=== PATIENT | male | born 1980 | race Hispanic/Latino ===

== ENCOUNTER 2017-06-05 11:44 | Emergency (ER) | payer BC | END 2017-06-05 12:46 | disposition home or self-care (01) | LOC: ERS 11:44 | DX: B02.9 Zoster without complications (principal); Z71.6 Tobacco abuse counseling; F17.210 Nicotine dependence, cigarettes, uncomplicated | CPT/HCPCS: 99406 ==

== ENCOUNTER 2018-08-18 18:00 | Emergency (ER) | payer BC ==
[~2018-08-18 18:00] MED LIST: ISOVUE-370 76%-LOCM 1 ML ONE
[2018-08-18] MEDS ORDERED: Acetaminophen 325 MG TAB ONE (18:49)
[2018-08-18 19:00] LABS: #Eosinphils 0.8 thou/uL (0.0-0.7); #Lymphocytes 1.8 thou/uL (1.20-3.40); #Monocytes 0.8 thou/uL (0.11-0.59); #Neutrophils 2.8 thou/uL (1.40-6.50); %Basophils 0.7 % (0.0-1.0); %Lymphocytes 29.1 % (21.0-51.0); %Monocytes 13.4 % (0.0-10.0); %Neutrophils 44.7 % (42.0-75.0); Hemoglobin 13.2 g/dL (14.0-18.0); Mean Corpuscular HGB CONC 33.8 g/dL (32.0-36.0); Mean Corpuscular Hemoglobin 29.8 pg (27.0-31.0); Mean Corpuscular Volume 88.2 fL (78.0-98.0); Mean Platelet Volume 7.1 fL (7.4-10.4); Platelet Count 329 thou/uL (130-400); RBC Distribution Width 11.4 % (11.5-14.5); Red Blood Cell (RBC) Count 4.43 mill/uL (4.70-6.10); White Blood Cell (WBC) Count 6.3 thou/uL (4.8-10.8)
[2018-08-18 19:19] LABS: Bilirubin Small (Negative); Blood, Urine Negative (Negative); Clarity CLEAR (Clear); Glucose, Urine (Dipstick) Negative (Negative); Leukocyte Negative (Negative); Nitrite Negative (Negative); Protein, Urine (Dipstick) Negative (Neg-Trace); Specific Gravity, Urine 1.027 (1.002-1.036)
[2018-08-18 19:22] LABS: ALT (SGPT) 29 U/L (8-55); AST (SGOT) 14 U/L (5-34); Albumin 3.5 g/dL (3.5-5.0); Alkaline Phosphatase 119 U/L (40-150); Anion Gap 10 mmol/L (10-20); BUN (Urea Nitrogen) 9 mg/dL (8.9-20.6); Bilirubin, Total 0.2 mg/dL (0.2-1.2); Calc. Creatinine Clearance 0 mL/min (70-130); Calcium 8.8 mg/dL (7.8-10.44); Carbon Dioxide 30 mmol/L (22-29); Chloride 105 mmol/L (98-107); Estimated GFR-MDRD Greater than 90; Globulin 3.2 g/dL (2.4-3.5); Glucose 73 mg/dL (70-105); Lipase 66 U/L (8-78); Potassium 3.5 mmol/L (3.5-5.1); Protein, Total 6.7 g/dL (6.0-8.3); Sodium 141 mmol/L (136-145)
--- NOTE | 2018-08-18 20:04 | CT ---
NONCONTRAST CT OF THE ABDOMEN AND PELVIS: History: Left lower quadrant pain. FINDINGS: The lung bases are unremarkable. No evidence of free intraperitoneal air is seen. The liver, spleen, and pancreas are unremarkable. The stomach is distended with a large amount of ing ested food. The gallbladder is contracted. The adrenal glands and kidneys are unremarkable. No dilate d loops of small bowel is seen. The colon is unremarkable. Left inguinal lymph nodes are present, fina meter measuring 1.3 cm. No evidence of hernia seen in the inguinal canal. Moderately enlarged mesenteric lymph nodes are also present. IMPRESSION: Enlarged left inguinal lymph nodes. Correlate with possible infectious etiologies. Malignancy, howeve r, cannot be excluded. Correlate with clinical exam and follow up clinical evaluation. POS: MALENA
[2018-08-18] MEDS ORDERED: cefTRIAXone\\ROCEPHIN 250 MG VIAL ONE (21:28)
[2018-08-18] MEDS ORDERED: Lidocaine 1% PF 5 ML VIAL ONE (21:28)
[2018-08-21 00:46] LABS: Chlamydia by PCR Not Detected (NotDetected); GC by PCR Not Detected (NotDetected)
== END 2018-08-18 22:00 | disposition home or self-care (01) ==
LOC: ERS 18:00
DX: R59.0 Localized enlarged lymph nodes (principal); F17.210 Nicotine dependence, cigarettes, uncomplicated
CPT/HCPCS: 36415; 74177; 80053; 81003; 83690; 85025; 87086; 87491; 87591; 96372; J0696; J2001; Q9966

== ENCOUNTER 2023-11-22 03:39 | Emergency (ER) | payer BC, SELFPAY ==
[2023-11-22 04:09] LABS: #Basophils 0.05 10x3/uL (0.0-0.2); %Basophils 0.7 % (0.0-1.0); %Eosinophils 11.2 % (0.0-10.0); %Lymphocytes 26.5 % (21.0-51.0); %Monocytes 10.8 % (0.0-10.0); %Neutrophils 50.4 % (42.0-75.0); Hematocrit 46.7 % (42.0-52.0); Mean Corpuscular HGB CONC 34.3 g/dL (32.0-36.0); Mean Corpuscular Hemoglobin 29.9 pg (27.0-31.0); Mean Corpuscular Volume 87.1 fL (78.0-98.0); Mean Platelet Volume 10.4 fL (7.4-10.4); Platelet Count 270 10x3/uL (130-400); RBC Distribution Width 12.9 % (11.5-14.5); Red Blood Cell (RBC) Count 5.36 mill/uL (4.70-6.10)
[2023-11-22] MEDS ORDERED: fentaNYL 50 mcg/mL 1 mL Vial ONE (04:10)
[2023-11-22] MEDS ORDERED: Nitroglycerin 2% Ointment 1 INCH/1 GM Packet ONE (04:10)
[2023-11-22] MEDS ORDERED: Aspirin Chewable 81 MG TAB ONE ×2 (04:10→04:18)
[2023-11-22 04:30] LABS: ALT (SGPT) 32 U/L (8-55); AST (SGOT) 26 U/L (5-34); Albumin 3.5 g/dL (3.5-5.0); Alkaline Phosphatase 101 U/L (40-110); Anion Gap 11 mmol/L (10-20); BUN (Urea Nitrogen) 15 mg/dL (8.9-20.6); Bilirubin, Total 0.3 mg/dL (0.2-1.2); Calc. Creatinine Clearance 0 mL/min (70-130); Calcium 8.8 mg/dL (7.8-10.44); Carbon Dioxide 25 mmol/L (22-29); Chloride 108 mmol/L (98-107); Estimated GFR 112; Globulin 3.6 g/dL (2.4-3.5); Glucose 100 mg/dL (70-105); Lipase 55 U/L (8-78); Potassium 3.9 mmol/L (3.5-5.1); Protein, Total 7.1 g/dL (6.0-8.3); Sodium 140 mmol/L (136-145)
[2023-11-22 04:33] LABS: Troponin I 0.017 ng/mL (< 0.028)
[2023-11-22 06:08] LABS: Acetaminophen Less than 10 mcg/mL (10.0-30.0); Alcohol Less than 10.0 mg/dL (Less than 10); Salicylate Less than 8.0 mg/dL (15.0-30.0); Troponin I 0.015 ng/mL (< 0.028)
[2023-11-22 06:46] LABS: Amphetamine Detected (NotDetected); Bacteria/HPF None Seen HPF (None Seen); Barbiturates Screen Not Detected (NotDetected); Benzodiazepine Screen Not Detected (NotDetected); Bilirubin Negative (Negative); Blood, Urine Negative (Negative); Clarity Clear (Clear); Cocaine Metabolite Screen Detected (NotDetected); Glucose, Urine (Dipstick) Normal (Negative); Ketone, Urine Negative (Negative); Leukocyte Negative Leu/uL (Negative); Methadone Not Detected (NotDetected); Methamphetamine Not Detected (NotDetected); Nitrite Negative (Negative); Opiate Screen Not Detected (NotDetected); Oxycodone Screen Not Detected (NotDetected); Phencyclidine (PCP) Not Detected (NotDetected); Protein, Urine (Dipstick) Negative (Neg-Trace); RBC/HPF 0-3 HPF (0-3); Squamous Epithelial 0-3 HPF (0-3); THC/Cannabinoid Screen Not Detected (NotDetected); Tricyclic Screen Not Detected (NotDetected); Urobilinogen Normal mg/dL (Less than 2); WBC/HPF None Seen HPF (0-3); pH, Urine 6.5 (5.0-9.0)
[2023-11-22 06:47] LABS: Specific Gravity, Urine 1.056 (1.002-1.036)
[2023-11-22 06:48] LABS: Urine Culture Reflex Yes Yes
[2023-11-22] MEDS ORDERED: Iopamidol 370 76% 100 ML VIAL ONE (11:24)
== END 2023-11-22 07:08 | disposition home or self-care (01) ==
LOC: ERS 03:39
DX: R07.89 Other chest pain (principal); F14.10 Cocaine abuse, uncomplicated
CPT/HCPCS: 36415; 71275; 74174; 80053; 80306; 80307; 81001; 82550; 83690; 84484; 85025; 93005; 96374; J3010; Q9967